=== PATIENT | male | born 1960 | race Caucasian/White ===

== ENCOUNTER 2018-07-08 13:32 | Emergency (ER) | payer BC, OTHER ==
[2018-07-08] MEDS ORDERED: Ketorolac INJ* 30 MG/ML 1 ML VIAL IM ONE (13:53)
[2018-07-08] MEDS ORDERED: NS 0.9% 1000 ML** 1,000 ML IV ONE (13:53)
[2018-07-08] MEDS ORDERED: Morphine VIAL* 10 MG/ML 1 ML VIAL IV ONE (13:55)
[2018-07-08] MEDS ORDERED: Ondansetron INJ* 2 MG/ML VIAL IV ONE (13:55)
--- NOTE | 2018-07-08 13:56 | ED ---
Abdominal Pain/Male - HPI Summary HPI Summary: This patient is a 58 year old M brought in by ambulance from [facility] to ED with a chief complaint of R flank pain since a bit after 1100 today. He was given Toradol [employer]. The CC is described as radiating from the back, around the R flank and down into his R groin. He was taking groceries out of his vehicle during onset. The patient rates the pain 6/10 in severity. Symptoms aggravated by nothing. Symptoms alleviated by nothing. Patient reports difficulty urinating and nausea. He denies hx of kidney stones. He reports similar episode a couple days ago but it resolved on its own. - History of Current Complaint Chief Complaint: EDFlankPain Stated Complaint: FLANK PAIN PER EMS Time Seen by Provider: 07/08/18 13:36 Hx Obtained From: Patient Onset/Duration: Sudden Onset, Lasting Hours, Still Present Timing: Constant Severity Initially: Moderate Severity Currently: Moderate Pain Intensity: 6 Pain Scale Used: 0-10 Numeric Location: Groin - right, Flank - right Radiates: Yes Radiates to: Back - radiates from the back around the R flank, and into the R groin, Flank Aggravating Factor(s): Nothing Alleviating Factor(s): Nothing Associated Signs And Symptoms: Positive: Back Pain, Urinary Symptoms - difficulty urinating, Nausea - Allergies/Home Medications Allergies/Adverse Reactions: Allergies Allergy/AdvReac Type Severity Reaction Status Date / Time No Known Allergies Allergy Verified 07/08/18 13:36 Home Medications: Home Medications amLODIPine TAB* [Norvasc 5 mg TAB*] 5 mg PO DAILY 07/08/18 [History Confirmed ] PMH/Surg Hx/FS Hx/Imm Hx Endocrine/Hematology History: Denies: Hx Diabetes Cardiovascular History: Denies: Hx Coronary Artery Disease Infectious Disease History: No Infectious Disease History: Denies: Traveled Outside the [place] in Last 30 Days - Family History Known Family History: Negative: Blood Disorder - Social History Alcohol Use: Occasionally Hx Substance Use: No Substance Use Type: Reports: None Hx Tobacco Use: No Smoking Status (MU): Former Smoker Review of Systems Positive: Abdominal Pain - R flank pain, radiating from back and down into R groin, Nausea Positive: flank pain, other - difficulty urinating Positive: Other - back pain radiating across R flank and down into R groin All Other Systems Reviewed And Are Negative: Yes Physical Exam - Summary Physical Exam Summary: VITAL SIGNS: Reviewed. GENERAL: Patient is a well-developed and nourished male who is lying comfortable in the stretcher. Patient is not in any acute respiratory distress. HEAD AND FACE: Normocephalic and atraumatic. EYES: PERRLA, EOMI x 2, No injected conjunctiva. EARS: Hearing grossly intact. Ear canals and tympanic membranes are WNL. MOUTH: Oropharynx within normal limits. NECK: Supple, trachea is midline, no adenopathy, no JVD. CHEST: Symmetric, no tenderness at palpation LUNGS: Clear to auscultation bilaterally. No wheezing or crackles. CVS: RRR, S1 and S2 present, no murmurs or gallops appreciated. ABDOMEN: Soft. No signs of distention. Positive bowel sounds. No rebound no guarding, and no masses palpated. No abdominal bruit or pulsations. Positive right CVA tenderness. EXTREMITIES: FROM in all major joints, no edema, no cyanosis or clubbing. NEURO: Alert and oriented x 3. No acute neurological deficits. Speech is normal. SKIN: Warm. Pallor. Slightly diaphoretic. Triage Information Reviewed: Yes Vital Signs On Initial Exam: Initial Vitals Temp Pulse Resp BP Pulse Ox 96.5 F 64 19 178/78 96 07/08/18 13:35 07/08/18 13:35 07/08/18 13:35 07/08/18 13:35 07/08/18 13:35 Vital Signs Reviewed: Yes Diagnostics - Vital Signs Vital Signs Temp Pulse Resp BP Pulse Ox 07/08/18 13:35 96.5 F 64 19 178/78 96 - Laboratory Result Diagrams: 07/08/18 14:13 07/08/18 14:13 Lab Statement: Any lab studies that have been ordered have been reviewed, and results considered in the medical decision making process. - CT CT abd/pel CT Interpretation Completed By: Radiologist Summary of CT Findings: Mild RIGHT hydronephrosis is traced to a 2 mm stone at the ureterovesicular junction. Dr. Rasmussen has reviewed this radiology report. - EKG 1338 Cardiac Rate: NL EKG Rhythm: Sinus Rhythm Summary of EKG Findings: no ST elevations, ST depression in V5 and V6 1402 Cardiac Rate: NL - 69 BPM EKG Rhythm: Sinus Rhythm Summary of EKG Findings: no ST elevations Re-Evaluation - Re-Evaluation First Eval Re-Evaluation Time: 17:17 Comment: Discussed results with the patient and plan for discharge. Patient understands and agrees with this plan. Abdominal Pain Male Course/Dx - Course Assessment/Plan: Patient is a 58-year-old mother who presents to the emergency department with right flank pain. The ED course the patient was given IV fluids , morphine for the pain and Zofran for nausea & vomiting. Blood work without any significant abnormality except for what was a little 13.2, glucose 142, lipase less than 10. Abdominopelvic CT impression: Mild right hydronephrosis is traced to a 2 mm stone at the ureterovesical junction. After medications the patients symptoms have significantly improved. The patient is feeling better. The pain is resolved. Therefore the patient will be discharged home with follow-up with primary care physician. He was recommended to return to the emergency department if the symptoms return. - Diagnoses Differential Diagnosis/HQI/PQRI: Other - kidney stone Provider Diagnoses: Kidney stone Discharge - Sign-Out/Discharge Documenting (check all that apply): Patient Departure - discharge Patient Received Moderate/Deep Sedation with Procedure: No - Discharge Plan Condition: Stable Disposition: HOME Prescriptions: HYDROcodone/ACETAMIN 5-325 MG* [[place] 5-325 TAB*] 1 tab PO Q8H PRN #12 tab MDD 4 PRN Reason: Pain Patient Education Materials: Kidney Stones (ED) Referrals: Felix Arnold MD [Primary Care Provider] - 3 Days Additional Instructions: RETURN TO THE ED FOR ANY WORSENING OR NEW SYMPTOMS. - Billing Disposition and Condition Condition: STABLE Disposition: Home - Attestation Statements Document Initiated by Jassi: Yes Documenting Scribe: Chad Morris Provider For Whom Jassi is Documenting (Include Credential): Mike Rasmussen MD Scribe Attestation: Chad Sams, scribed for Mike Rasmussen MD on 07/08/18 at 1847. Scribe Documentation Reviewed: Yes Provider Attestation: The documentation as recorded by the Chad samano accurately reflects the service I personally performed and the decisions made by me, Mike Rasmussen MD Status of Scribe Document: Viewed
[2018-07-08 14:28] LABS: ABS Basophils 0.1 10^3/ul (0-0.2); ABS Eosinophils 0.1 10^3/ul (0-0.6); ABS Lymphocytes 1.5 10^3/ul (1.0-4.8); ABS Monocytes 0.7 10^3/ul (0-0.8); ABS Neutrophils 10.8 10^3/ul (1.5-7.7); ABS Nucleated RBC 0 10^3/ul; Eosinophil % 0.5 %; Hematocrit 46 % (42-52); Hemoglobin 15.2 g/dl (14.0-18.0); Lymphocyte % 11.4 %; Mean Corpuscular HGB Conc 33 g/dl (31-36); Mean Corpuscular Hemoglobin 31 pg (27-31); Mean Corpuscular Volume 94 fL (80-94); Mean Platelet Volume 7.4 fL (7.4-10.4); Nucleated Red Blood Cells % 0; Platelet Count 276 10^3/ul (150-450); Red Blood Count 4.86 10^6/ul (4.00-5.40); Red Cell Distribution Width 13 % (10.5-15); White Blood Count 13.2 10^3/ul (3.5-10.8)
[2018-07-08 14:42] LABS: Anion Gap 8 mmol/L (2-11); CO2 Carbon Dioxide 22 mmol/L (22-32); Chloride 107 mmol/L (101-111); Potassium 4.3 mmol/L (3.5-5.0); Sodium 137 mmol/L (135-145)
[2018-07-08 14:49] LABS: ALT 46 U/L (7-52); AST 25 U/L (13-39); Albumin/Globulin Ratio 1.4 (1-3); Alkaline Phosphatase 69 U/L (34-104); BUN/Creatinine Ratio 19.4 (8-20); Blood Urea Nitrogen 18 mg/dL (6-24); C Reactive Protein 6.96 mg/L (<8.01); EGFR African American 101.7 (>60); Globulin 2.9 g/dL (2-4); Glucose 142 mg/dL (70-100); Total Protein 6.9 g/dL (6.4-8.9)
[2018-07-08 17:04] LABS: Urine Appearance Clear; Urine Bacteria Absent (Absent); Urine Bilirubin Negative (Negative); Urine Blood 1+ (Negative); Urine Color Yellow; Urine Glucose Negative (Negative); Urine Ketones 1+ (Negative); Urine Nitrite Negative (Negative); Urine Protein Negative (Negative); Urine Red Blood Cell Trace(0-2/hpf) (Absent); Urine Specific Gravity 1.012 (1.010-1.030); Urine Urobilinogen Negative (Negative); Urine White Blood Cell Trace(0-5/hpf) (Absent)
[2018-07-08 17:27] VITALS: BP 140/55
== END 2018-07-08 17:27 | disposition home or self-care (01) ==
LOC: ED 13:32
DX: N20.0 Calculus of kidney (principal); R10.84 Generalized abdominal pain; M54.9 Dorsalgia, unspecified; Z87.891 Personal history of nicotine dependence
CPT/HCPCS: 36415; 74176; 80053; 81003; 81015; 83605; 83690; 85025; 86140; 87086; 93005; 96361; 96372; 96374; 96375; 99283; J2270; J2405